=== PATIENT | male | born 1995 | race African-American/Black ===

== ENCOUNTER 2020-09-15 12:46 | Emergency (ER) | payer OTHER ==
--- NOTE | 2020-09-15 13:36 | Event Note ---
This is a 25-year-old male who presents with rectal discomfort and bleeding. Patient has a large soft hemorrhoid which has been present for several years. Unclear if this is acutely thrombosed. Recommended hemorrhoid cream referral to surgeon recommended also stool softeners
--- NOTE | 2020-09-15 13:39 | Emergency Department Report ---
ED General Adult HPI - General Chief complaint: Rectal Pain Stated complaint: RECTAL BLEED/ FROM ANCHOR Time Seen by Provider: 09/15/20 13:14 Source: patient Mode of arrival: Ambulatory Limitations: No Limitations - History of Present Illness Initial comments: 25 y/o male pt presents to ED via EMS w/ complaints of rectal pain and bleeding starting today. Pt states his symptoms began after attempting to have a bowel movement. States he has not inserted anything into his rectum. He is not anticoagulated. Denies fever, chills, abdominal pain, vomiting, testicular pain/swelling. Denies all other complaints at this time. - Related Data Previous Rx's Medication Instructions Recorded Last Taken Type Pramoxine HCl [Proctofoam] 15 gm TP QID #1 tube 09/15/20 Unknown Rx bisacodyL [Dulcolax] 10 mg PO DAILY #10 tab 09/15/20 Unknown Rx Allergies Allergy/AdvReac Type Severity Reaction Status Date / Time No Known Allergies Allergy Unverified 09/15/20 12:52 ED Review of Systems ROS: Stated complaint: RECTAL BLEED/ FROM ANCHOR Other details as noted in HPI Other: GENERAL: Negative for fever. CARDIOVASCULAR: Negative for chest pain. PULMONARY: Negative for shortness of breath. GASTROINTESTINAL: Positive for rectal pain and bleeding. MUSCULOSKELETAL: Negative for back pain. NEUROLOGICAL: Negative for headache. INTEGUMENTARY: Negative for rash. ED Past Medical Hx - Past Medical History Previous Medical History?: Yes Hx Psychiatric Treatment: Yes - Medications Home Medications: Home Medications Medication Instructions Recorded Confirmed Last Taken Type Pramoxine HCl [Proctofoam] 15 gm TP QID #1 tube 09/15/20 Unknown Rx bisacodyL [Dulcolax] 10 mg PO DAILY #10 tab 09/15/20 Unknown Rx ED Physical Exam - General Limitations: No Limitations - Other Other exam information: General: Awake, appropriately interactive, no acute distress. Neck: Supple. Full range of motion intact. Cardiovascular: Normal peripheral perfusion. Pulmonary: No respiratory distress. Patient is speaking normally without use of accessory muscles. Rectal: Male registered clinical dietitian (Rigoberto, java technical manager) present. Large non-thrombosed external hemorrhoid noted to the 3:00 position. Small easily reducible rectal prolapse adjacent to hemorrhoid with minimal active bleeding. Skin: No apparent rashes or lesions. Neurological: No facial asymmetry. Speech is clear. Follows commands. Patient is alert and oriented. Musculoskeletal: Moves all four extremities spontaneously with normal range of motion. Psych: Cooperative. Appropriate mood and affect. ED Course Vital Signs 09/15/20 12:52 Temperature 98.5 F Pulse Rate 82 Respiratory 16 Rate Blood Pressure 118/76 [Right] O2 Sat by Pulse 99 Oximetry ED Medical Decision Making - Medical Decision Making Differential diagnosis including but not limited to: rectal prolapse, perirectal abscess, infected pilonidal cyst, thrombosed hemorrhoid, anal fissure Patient presents to the emergency department with complaints of painful hemorrhoids. He is afebrile. Vital signs are stable. Minimal bleeding from the rectum is controlled. Physical exam findings as above. No clinical indication for further diagnostic work-up and/or emergent surgical consultation at this time. Patient will be discharged home with appropriate symptomatic treatment and referred to general surgeon for close outpatient follow-up. Patient expressed understanding and is agreeable to plan of care. Dietary modifications discussed. Strict return precautions provided. History, exam, diagnostic testing, and current condition do not suggest worrisome pathology to warrant further testing, continued ED treatment, admis dany, or surgical evaluation at this point. Given the low probability of a significant medical illness, it would be more likely to result in harm than benefit to perform further testing at this stage. Discussed findings, presumptive diagnosis, need for follow-up and specific signs/symptoms that should prompt immediate return to the emergency department. Instructions were explained in detail to the patient in addition to giving written discharge information. Patient expressed understanding and was given the opportunity to ask questions, all of which were satisfactorily answered prior to discharge home. Case discussed with Dr. Sumner, attending emergency physician, who personally evaluated the patient and agrees with diagnostic work-up/plan of care. Critical care attestation.: If time is entered above; I have spent that time in minutes in the direct care of this critically ill patient, excluding procedure time. ED Disposition Clinical Impression: Hemorrhoid prolapse Disposition: DC-01 TO HOME OR SELFCARE Is pt being admited?: No Does the pt Need Aspirin: No Condition: Stable Instructions: Surgical Procedures for Hemorrhoids Additional Instructions: Take Tylenol every 4 hours as needed for pain. Take Dulcolax as directed. Increase your dietary fiber intake. Use Proctofoam as directed. You must follow-up with general surgery for definitive management. See referral information below. Call today to schedule an appointment. Return to the emergency department immediately for new or worsening symptoms. Prescriptions: bisacodyL [Dulcolax] 10 mg PO DAILY #10 tab Pramoxine HCl [Proctofoam] 15 gm TP QID #1 tube Referrals: ROCHELLE MALONE DO [Staff Physician] - 3-5 Days Time of Disposition: 13:39
[2020-09-15 14:46] VITALS: BP 120/87
== END 2020-09-15 14:47 | disposition home or self-care (01) ==
LOC: ED 12:46
DX: K64.8 Other hemorrhoids (principal); Z79.899 Other long term (current) drug therapy
CPT/HCPCS: 99283